=== PATIENT | female | born 1970 | race Caucasian/White ===

== ENCOUNTER 2019-04-28 05:28 | Day surgery (SDC) | payer BC ==
[2019-04-22 17:12] VITALS: BMI 31.7
--- NOTE | 2019-04-28 06:52 | HP ---
History & Physical Update - History History: No Change - Physical Physical: No Change - Assessment Assessment: No Change - Plan Plan: No Change (No change in HP)
[2019-04-28] MEDS ORDERED: PHENAZOPYRIDINE HCL 100 MG TABLET (FP) PO STA (06:53)
[2019-04-28] MEDS ORDERED: BUPIVACAINE HCL/PF 0.5% (5 MG/ML) 30 ML VIAL IJ ONE ×4 (07:27→08:40)
[2019-04-28] MEDS ORDERED: MIDAZOLAM HCL 2 MG/2 ML SINGLE DOSE VIAL ONE ×2 (07:41)
[2019-04-28] MEDS ORDERED: ROCURONIUM BROMIDE 50 MG/5 ML SYRINGE ONE ×2 (08:05→08:32)
[2019-04-28] MEDS ORDERED: PROPOFOL 20 ML ONE (08:05)
[2019-04-28] MEDS ORDERED: LIDOCAINE HCL 2% 100 MG/5 ML DISP.SYRIN ONE (08:06)
[2019-04-28] MEDS ORDERED: ceFAZolin SODIUM 1 GM VIAL IVPB ONE (08:30)
[2019-04-28] MEDS ORDERED: ceFAZolin SODIUM 1 GM VIAL ONE ×2 (08:36)
[2019-04-28] MEDS ORDERED: ONDANSETRON 4 MG/2 ML VIAL IVPUSH PRN (08:40)
[2019-04-28] MEDS ORDERED: PHENAZOPYRIDINE HCL 100 MG TABLET (FP) ONE (08:41)
[2019-04-28] MEDS ORDERED: NEOSTIGMINE METHYLSULFATE 0.5 MG/ML - 10 ML MDV ONE (10:08)
--- NOTE | 2019-04-28 11:01 | OP ---
Operative Note - Note: Operative Date: 04/28/19 Pre-Operative Diagnosis: Leiomyomatous uterus; elective sterilization Operation: Robotic hysterectomy with bilateral salpingectomy Post-Operative Diagnosis: Same as Pre-op Surgeon: Alesha Gannon Roundsman: Salas Piper Anesthesiologist/FUNERAL HOME MANAGER: Roel Lowery Anesthesia: General Specimens Removed: Uterus and bilateral tubes Estimated Blood Loss (mls): 20 Drains, Volume Out (mls): 400 (Clear) Fluid Volume Replaced (mls): 1,000
--- NOTE | 2019-04-28 11:02 | SURG ---
Surgery Land Resource Specialist Note Land Resource Specialist: Salas Piper PA-C Date of Service: 04/28/19 Diagnosis: Leiomyomatous uterus; elective sterilization Procedure: Robotic hysterectomy with bilateral salpingectomy I was present for the entirety of the operative procedure. For further detail, please refer to operative report. Visit type - Case Type Case Type: Scheduled - New patient This patient is new to me today: Yes Date on this admission: 04/28/19
[2019-04-28 11:05] LABS: HEMATOCRIT 32.7 % (32.4-45.2); HEMOGLOBIN 10.8 GM/dL (10.7-15.3); MCHC 32.9 g/dl (32.0-36.0); MEAN CELL VOLUME 91.4 fl (80-96); MEAN PLT VOLUME 10.3 fl (7.5-11.1); PLATELET COUNT 198 K/MM3 (134-434); RBC 3.58 M/mm3 (3.60-5.2); WHITE BLOOD COUNT 8.3 K/mm3 (4.0-10.0)
[2019-04-28] MEDS ORDERED: PATIENT'S OWN MEDICATION (NON-FORMULARY) (Cetirizine Hcl 10 MG) PO SCH (11:15)
[2019-04-28] MEDS ORDERED: IBUPROFEN 800 MG/8 ML IJ IVPB ONE (11:40)
--- NOTE | 2019-04-28 13:26 | OP ---
Operative Note - Note: Operative Date: 04/28/19 Pre-Operative Diagnosis: Leiomyomatous Uterus. Pelvic pain Operation: Laparascopic robotic total hysterectomy. bilateral salpingectomy Findings: uterus leiomyomatous uterus 14 cm Post-Operative Diagnosis: Same as Pre-op Anesthesia: General Estimated Blood Loss (mls): 25 Operative Report Dictated: Yes
--- NOTE | 2019-04-28 13:29 | OP ---
DATE OF OPERATION: 04/28/2019 PREOPERATIVE DIAGNOSES: Leiomyomatous uterus, pelvic pain, menorrhagia. POSTOPERATIVE DIAGNOSES: Leiomyomatous uterus, pelvic pain, menorrhagia, uterus approximately 14 cm in size. Patient is status post tubal ligation. OPERATION: Robotic laparoscopic total hysterectomy and bilateral salpingectomy. PROCEDURE: The patient was taken to the operating room, placed in dorsal lithotomy position, prepped and draped in the usual sterile fashion. A time-out was performed in accordance with hospital regulation. Speculum was placed in the vagina, anterior lip of the cervix grasped with single-tooth tenaculum. Cervix then dilated to accommodate the uterine manipulator. Large uterine manipulator was inserted into endometrial cavity. All instruments were then removed. Barroso catheter was inserted. Attention was then drawn to the umbilicus, where an 8-mm umbilical incision was made. Veress needle was inserted into the cavity. Approximately 3 to 4 L of CO2 was insufflated in the cavity. The Veress needle was then removed and an 8-mm trocar was then inserted. Laparoscope and camera revealed some abdominopelvic omental adhesions and the uterus approximately 14 cm in size, ovaries noted to be normal, and patient status post tubal ligation with both proximal and distal stumps, which were normal. Two trocars were placed on the left on the upper abdomen and also parallel to the umbilical incision 10 cm apart from the umbilicus. Scalpel was then used to make an incision and trocar was then inserted under direct visualization. Upper abdomen 5-mm incision was then made and trocar was then inserted. Two trocars were then placed on the right side parallel to each other and parallel to the umbilical incision 10 cm apart. After the scalpel had been used, trocars were inserted under direct visualization. The da Cecy robot was then side-docked to the patient's bedside. Trocars were then inserted onto the da Cecy robot and laparoscope and camera was attached. Visualization revealed numerous pelvic omental adhesions. Uterus was noted to be a leiomyomatous uterus approximately 14 to 15 cm in size. Ovaries were noted to be normal and proximal portions of tubes on the right and left side were both normal. Both the LigaSure and Endo Diana and tenaculum were placed in the abdomen. Attention was then drawn to the console, where control of the console was then done. The trocar was then used to elevate and clamp the uterus to the right side. Round ligament was identified, was clamped and cut using LigaSure. Uterine artery was identified, clamped and cut. Vesicouterine reflection was then entered and carried downward. Bladder was bluntly dissected out of the operative field. Cardinal ligament was identified and clamped and cut and broad ligament was identified, clamped and cut down to the level of the cervix. Endo Diana were then used to enter the vagina. Uterine manipulator was identified and cutting and cautery of the vagina was then done circumferentially. The same procedure was then repeated on the other side. Uteroovarian ligament was identified and clamped and cut. The round ligament was identified, clamped and cut. Broad ligament and cardinal ligament was identified and clamped and cut as the vesicouterine reflection had been reflected down. The vagina was then cut away from the cervix and ureters were identified and found to have peristalsis. Attention was then drawn below, where a tenaculum was then used to grasp the cervix and the uterus, and the cervix was then removed from the pelvis. A 2-0 V-Loc suture was then introduced and the vaginal cuff was then closed in a continuous fashion using V-Loc suture. The needle was then removed from the abdomen. All instruments were then removed after hemostasis achieved and peristalsis of the ureters identified. The incisions were then closed using 3-0 Vicryl in subcuticular fashion. The wound was washed and dressed. Patient tolerated procedure well. Estimated blood loss 25 mL. The da Cecy robot had been removed and all trocars were undocked and removed from the patient's bedside. April FERGUSON/[id number]
[2019-04-28] MEDS: LACTATED RINGERS SOLUTION 1,000 ML IV SCH ×2 (14:00→22:00)
[2019-04-28] MEDS ORDERED: HYDROmorphone HCL 2 MG TABLET PO PRN (17:00)
[2019-04-28] MEDS: CEFAZOLIN 2 GM/D5W 2 GM/50 ML ML IVPB SCH (17:32)
[2019-04-28] MEDS: TIMOLOL 0.5% OPHTHALMIC SOL 5 ML BOTTLE OU SCH (18:00)
[2019-04-28 22:23] LABS: BLOOD UREA NITROGEN 8.2 mg/dL (7-18); CALCIUM 8.4 mg/dL (8.5-10.1); CREATININE 0.6 mg/dL (0.55-1.3); POTASSIUM 4.8 mmol/L (3.5-5.1)
[2019-04-28] MEDS: IBUPROFEN 800 MG/8 ML IJ IVPB PRN (22:49)
[2019-04-29] MEDS: CEFAZOLIN 2 GM/D5W 2 GM/50 ML ML IVPB SCH (00:57)
[2019-04-29] MEDS: TIMOLOL 0.5% OPHTHALMIC SOL 5 ML BOTTLE OU SCH (06:00)
[2019-04-29] MEDS: LACTATED RINGERS SOLUTION 1,000 ML IV SCH (06:50)
[2019-04-29] MEDS ORDERED: HYDROmorphone HCL 2 MG TABLET PO PRN (06:52)
[2019-04-29] MEDS: IBUPROFEN 800 MG/8 ML IJ IVPB PRN (07:30)
--- NOTE | 2019-04-29 08:08 | PN ---
Progress Note (short form) - Note Progress Note: POD 1, Laparascopic robotic total hysterectomy, bilateral salpingectomy Pt seen and examined. Reports she is feeling well, no issues overnight. Tolerating PO. Has not been oob. Sanabria still in place. Denies cp/sob, n/v/d. Vital Signs Temp 98.2 F 04/29/19 06:30 Pulse 64 04/29/19 06:30 Resp 20 04/29/19 06:30 BP 108/58 L 04/29/19 06:30 Pulse Ox 98 04/28/19 22:00 Intake & Output 04/28/19 04/28/19 04/29/19 11:59 23:59 11:59 Intake Total 041 120 1470 Output Total 575 2600 600 Balance -75 -1950 1950 Intake: IV 986 068 1781 Lactated Ringers Solution 650 1400 1,000 ml @ 125 mls/hr IV ASDIR DONALDO Rx#: [id number] IVPB 350 Oral 800 Output: Urine 550 2600 600 Sanabria 2000 600 Estimated Blood Loss 25 Other: Voiding Method Indwelling Catheter Indwelling Catheter CBC, BMP 04/28/19 10:40 04/28/19 21:30 Gen: awake, alert, nad Resp: unlabored on RA Abdo: soft, +ttp at port sites and lower abdomen. Dressings c/d/i. +bowel sounds. A/P: 48 y/o F w/ h/o Leiomyomatous Uterus/Pelvic pain, now POD 1, s/p Laparascopic robotic total hysterectomy, bilateral salpingectomy. VSS Labs pending -F/U Am labs -Remove sanabria, await TOV -Advance diet -Pain control as ordered: Caldor 800mg q6hrs prn, Oxy 5/10mg q4hrs prn, Acetaminophen 650 q4h -Bowel regimen -OOB as tolerated -DVT prophylaxis with lovenox 40mg qd, b/l scds -Plan for d/c later today pending TOV message sent to Dr Gannon regarding above
[2019-04-29] MEDS ORDERED: ACETAMINOPHEN 325 MG TABLET (FP) PO PRN (08:18)
[2019-04-29] MEDS ORDERED: oxyCODONE HCL 5 MG TABLET PO PRN ×2 (08:18)
--- NOTE | 2019-04-29 08:34 | DS ---
"Physical Exam: SUBJECTIVE: Patient seen and examined. Pt seen and examined. Reports she is feeling well, no issues overnight. Tolerating PO. Has not been oob. Sanabria still in place. Denies cp/sob, n/v/d. OBJECTIVE: Vital Signs Period Temp Pulse Resp BP Sys/[place] Pulse Ox Last 24 Hr 97.5 F-98.3 F 47-77 12-20 103-133/55-78 98-100 PHYSICAL EXAM Gen: awake, alert, nad Resp: unlabored on RA Abdo: soft, +ttp at port sites and lower abdomen. Dressings c/d/i. +bowel sounds. LABS Laboratory Results - last 24 hr 04/28/19 04/28/19 04/28/19 06:09 10:40 17:30 WBC 8.3 RBC 3.58 L Hgb 10.8 Hct 32.7 D MCV 91.4 MCH 30.0 MCHC 32.9 RDW 14.0 Plt Count 198 MPV 10.3 Sodium Cancelled Potassium Cancelled Chloride Cancelled Carbon Dioxide Cancelled Anion Gap Cancelled BUN Cancelled Creatinine Cancelled Est GFR (CKD-EPI)AfAm Cancelled Est GFR (CKD-EPI)NonAf Cancelled Random Glucose Cancelled Calcium Cancelled Blood Type O POSITIVE Antibody Screen Negative 04/28/19 21:30 WBC RBC Hgb Hct MCV MCH MCHC RDW Plt Count MPV Sodium 141 Potassium 4.8 Chloride 110 H Carbon Dioxide 27 Anion Gap 5 L BUN 8.2 Creatinine 0.6 Est GFR (CKD-EPI)AfAm 124.05 Est GFR (CKD-EPI)NonAf 107.03 Random Glucose 121 H Calcium 8.4 L Blood Type Antibody Screen HOSPITAL COURSE: The patient was admitted to the Gynecology Unit after an elective repair of her Leiomyomatous Uterus, Pelvic pain. Pt is now s/p Laparascopic robotic total hysterectomy, bilateral salpingectomy. Narcotic and non-narcotic pain management control was achieved with an oral and IV approach. POD #1, the sanabria catheter was removed and patient passed a trial of void. The patient ambulated the bennett without issue. Tabitha-operative IV ABX were administered. DVT prophylaxis was achieved with SCDs, early ambulation and Lovenox 40qd. Narcotic scripts were checked with [facility] [employer] DRIV[employer] MACHINE OPERATOR HELPER prior to escribe. The discharge instructions and an oral pain management plan were reviewed with the patient. All questions answered. Above plan discussed with Dr. Gannon and agreed. Date of Admission:04/28/19 Date of Discharge: 04/29/19 Minutes to complete discharge: 25 Discharge Summary Reason For Visit: ENDOMETRIAL POLYP Condition: Stable - Instructions Diet, Activity, Other Instructions: Dr. Alesha Gannon Hematologist Oncologist discharge instructions Physical activity Resume your normal everyday activity as tolerated no heavy lifting or exercise until seen by your surgeon. You may walk unlimited mark of and climb stairs. You may resume driving the car when you feel safe and comfortable behind the wheel. No sexual activity as instructed by Dr. Gannon. Wound care If you have a bandage, leave it on, and keep dry for 48-72 hours. After that time discard the outer bandage. If they are tapes on the skin under the out of bandage leave them in place. They will peel off in the next 7 to 10 days. Do Not Peel them off. You may shower the day after surgery. If there are tapes present on the skin, you may shower over them. Diet There are no dietary restrictions. Eat healthy, high-fiber foods. Drink 6 to 8 glasses of liquid each day. This will assist in keeping your bowels are regular. Pain management You may take Tylenol or acetaminophen or Ibuprofen (for example, Motrin, Advil etc.) from my pain prescription medication is ordered should be taken as prescribed for moderate to severe pain. Call Dr. Gannon for any of the following: Severe pain not relieved by medication Fever of 101 or higher Excessive bleeding or drainage on dressing Inability to urinate Call the office at [phone] for an appointment in seven days. [facility] [employer] MACHINE OPERATOR HELPER: This report was requested by: Salas Piper | Reference #: [id number] 03/28/2019 Qsymia (phentramine) 15 mg-92 mg capsule / 30 / FebrAngel carpenetr Disposition: HOME - Home Medications Comprehensive Discharge Medication List: Ambulatory Orders Iron 18 mg PO DAILY 04/22/19 Multivitamin [One-Daily Multi-Vitamin] 1 each PO DAILY 04/22/19 Timolol 0.5% [Timoptic 0.5%] 1 drop OU BID 04/22/19 Acetaminophen W/ Codeine #3 [Tylenol # 3 -] 1 tab PO Q4H PRN #20 tablet MDD 6 Cetirizine HCl [Zyrtec -] 10 mg PO PRN 04/28/19 This patient is new to me today: Yes Date on this admission: 04/29/19 Emergency Visit: No Critical Care patient: No - Discharge Referral Referred to [facility] No"
--- NOTE | 2019-04-29 08:40 | PN ---
Progress Note (short form) - Note Progress Note: Anesthesia/pain Pt seen and examined S:Alert and awake, comfortable O: Vital Signs Temperature 98.2 F 04/29/19 06:30 Pulse Rate 64 04/29/19 06:30 Respiratory Rate 20 04/29/19 06:30 Blood Pressure 108/58 L 04/29/19 06:30 O2 Sat by Pulse Oximetry (%) 98 04/28/19 22:00 CBC, BMP 04/28/19 10:40 04/28/19 21:30 A/P: s/p Robotic JIN?BSO Doing well post op Continue current care Sedrick Reza MD
[2019-04-29] MEDS ORDERED: ENOXAPARIN NA (PORCINE) 40 MG/0.4 ML DISP.SYRIN SQ SCH (10:00)
[2019-04-29] MEDS ORDERED: PATIENT'S OWN MEDICATION (NON-FORMULARY) (Iron [Iron] 18 MG) PO SCH (10:00)
[2019-04-29 10:09] VITALS: TEMP 98
[2019-04-29 10:12] LABS: BASO % 0.7 % (0-2.0); EOS % 0.4 % (0-4.5); HEMATOCRIT 32.3 % (32.4-45.2); HEMOGLOBIN 10.7 GM/dL (10.7-15.3); LYMPH % 25.2 % (8-40); MCH 30.1 pg (25.7-33.7); MEAN CELL VOLUME 91.2 fl (80-96); MONO % 8.2 % (3.8-10.2); NEUT % 65.5 % (42.8-82.8); PLATELET COUNT 194 K/MM3 (134-434); RBC 3.54 M/mm3 (3.60-5.2); RDW 13.8 % (11.6-15.6); WHITE BLOOD COUNT 7.6 K/mm3 (4.0-10.0)
[2019-04-29 10:37] LABS: BLOOD UREA NITROGEN 8.4 mg/dL (7-18); CALCIUM 8.3 mg/dL (8.5-10.1); CREATININE 0.7 mg/dL (0.55-1.3); POTASSIUM 3.5 mmol/L (3.5-5.1)
--- NOTE | 2019-04-29 11:17 | CON.CARD ---
Consult Consult Specialty:: Cardiology Referred by:: Dr. Gannon Reason for Consultation:: Cardiac evaluation - History of Present Illness Chief Complaint: Bradycardia History of Present Illness: Patient is a 48 year old female with underlying history of glaucoma who had laparoscopic robotic total hysterectomy and bilateral salpingectomy. Cardiology consultation was called for evaluation of bradycardia reported in the 50's and as low as 40's. She denies chest pain, shortness of breath or palpitations. She denies paroxysmal nocturnal dyspnea or orthopnea. She denies fever or chills. She denies nausea, vomiting, diarrhea or abdominal pain. She denies headache or lightheadedness. She denies syncope. She had seen a cloud physicist from her [place] office 2 years ago prior to starting a diet pill (QSymia). She also takes Timolol eye drops for glaucoma. - History Source History Provided By: Patient, Medical Record Limitations to Obtaining History: No Limitations - Past Medical History ...LMP: 03/22/19 Additional Medical History: Glaucoma - Past Surgical History Past Surgical History: Yes: Hysterectomy Additional Surgical History: Salpingectomy - Alcohol/Substance Use Hx Alcohol Use: No History of Substance Use: reports: None - Smoking History Smoking history: Never smoked Have you smoked in the past 12 months: No Home Medications - Allergies Allergies/Adverse Reactions: Allergies Allergy/AdvReac Type Severity Reaction Status Date / Time No Known Allergies Allergy Verified 04/22/19 17:14 - Home Medications Home Medications: Ambulatory Orders Iron 18 mg PO DAILY 04/22/19 Multivitamin [One-Daily Multi-Vitamin] 1 each PO DAILY 04/22/19 Timolol 0.5% [Timoptic 0.5%] 1 drop OU BID 04/22/19 Acetaminophen W/ Codeine #3 [Tylenol # 3 -] 1 tab PO Q4H PRN #20 tablet MDD 6 Cetirizine HCl [Zyrtec -] 10 mg PO PRN 04/28/19 Review of Systems - Review of Systems Constitutional: denies: Chills, Fever Cardiovascular: denies: Chest Pain, Palpitations, Shortness of Breath Respiratory: denies: Cough, Hemoptysis, Orthopnea, PND, SOB, SOB on Exertion Gastrointestinal: denies: Abdominal Pain, Constipation, Diarrhea, Melena, Nausea , Rectal Bleeding, Vomiting Musculoskeletal: denies: Back Pain, Joint Pain Neurological: denies: Dizziness, Headache, Seizure, Syncope Vital Signs: Vital Signs Temperature 98.0 F 04/29/19 10:00 Pulse Rate 64 04/29/19 10:00 Respiratory Rate 18 04/29/19 10:00 Blood Pressure 90/46 L 04/29/19 10:00 O2 Sat by Pulse Oximetry (%) 98 04/28/19 22:00 Eyes: Yes: PERRL HENT: Yes: Atraumatic Neck: Yes: Supple Respiratory: Yes: CTA Bilaterally Gastrointestinal: Yes: Normal Bowel Sounds, Soft. No: Tenderness Cardiovascular: Yes: Regular Rate and Rhythm JVD: No PMI: Non-Displaced Heart Sounds: Yes: S1, S2. No: Gallop Edema: No - Other Data Labs, Other Data: CBC, BMP 04/29/19 10:00 04/29/19 10:00 Problem List - Problems (1) Glaucoma Code(s): H40.9 - UNSPECIFIED GLAUCOMA (2) H/O total hysterectomy Code(s): Z90.710 - ACQUIRED ABSENCE OF BOTH CERVIX AND UTERUS (3) History of bilateral salpingectomy Code(s): Z90.79 - ACQUIRED ABSENCE OF OTHER GENITAL ORGAN(S) (4) Bradycardia Code(s): R00.1 - BRADYCARDIA, UNSPECIFIED (5) Hypotension Code(s): I95.9 - HYPOTENSION, UNSPECIFIED Assessment/Plan 1. Bradycardia maybe due to Timolol eye drops 2. Post laparoscopic robotic total hysterectomy and b/l salpingectomy 3. Transient hypotension due to fluid depletion PLAN: 1. ECG 2. Patient currently remains asymptomatic cardiac standpoint. Ambulate and continue IV fluids and encourage PO fluid intake 3. Further cardiac work up including echocardiography and external heart monitoring can be done as outpatient with her cloud physicist that she saw previously. 4. Check TFT 5. Post op care 6. Ophthalmology follow up as outpatient regarding glaucoma. May need to reduce the amount of eye drop if symptomatic bradycardia persists. Further plans are to follow Brown Johnson MD
[2019-04-29 11:54] VITALS: BP 94/59; PULSE 57
--- NOTE | 2019-04-29 13:46 | EKG ---
Test Reason : Blood Pressure : / mmHG Vent. Rate : 056 BPM Atrial Rate : 056 BPM P-R Int : 178 ms QRS Dur : 084 ms QT Int : 436 ms P-R-T Axes : 050 013 021 degrees QTc Int : 420 ms SINUS BRADYCARDIA OTHERWISE NORMAL ECG NO PREVIOUS ECGS AVAILABLE Confirmed by Ino Francisco MD ([id number]) on 04/29/2019 1:45:28 PM Referred By: Alesha Gannon Confirmed By:Ino Francisco MD
--- NOTE | 2019-04-29 16:57 | PATH ---
Surgical Pathology Report Patient Name: JEFF ORNELAS [facility]. Rec. #: [id number] /Age/Gender: 1970 (Age: 48) / F Account: [id number] Location: AMBULATORY SURG Taken: 04/28/2019 Received: 04/28/2019 Reported: 04/29/2019 Physicians: Alesha Gannon M.D. Specimen(s) Received A: UTERUS AND CERVIX B: RIGHT FALLOPIAN TUBE C: LEFT FALLOPIAN TUBE Clinical History Endometrial polyp Final Diagnosis A. UTERUS AND CERVIX, ROBOTIC LAPAROSCOPIC TOTAL HYSTERECTOMY: 175 G UTERUS. LEIOMYOMA(TA), SUBSEROSAL AND INTRAMURAL. PROLIFERATIVE ENDOMETRIUM. UNREMARKABLE MYOMETRIUM. UNREMARKABLE CERVIX. B. FALLOPIAN TUBE, RIGHT, SALPINGECTOMY: FALLOPIAN TUBE WITH PARATUBAL CYST AND HYDROSALPINX. C. FALLOPIAN TUBE, LEFT, SALPINGECTOMY: FALLOPIAN TUBE WITH PARATUBAL CYSTS, HYDROSALPINX, AND ENDOMETRIOSIS. Electronically Signed Sweta Barclay M.D. Gross Description A. Received in formalin labeled "uterus and cervix" is a 175 g uterus without attached adnexa. The uterus measures 7 cm from superior to inferior, 7 cm from left to right, and 4 cm from anterior to posterior. The serosa is pink-lanier and shows multiple bulging subserosal nodules. The endometrial cavity measures 3 cm in length and 3 cm from cornu to cornu. The endometrium is hemorrhagic, measuring up to 0.2 cm in thickness. No endometrial polyps are grossly identified. The myometrium is lanier-pink and trabeculated, measuring up to 3.0 cm in thickness. On sectioning, multiple subserosal and intramural nodules are identified, measuring up to 2.2 cm in greatest dimension. The cut surface of the nodules is lanier, rubbery and displays a whorled architecture. No areas of hemorrhage or necrosis are identified. Community Life Director sections are submitted in 10 cassettes as follows: 1- anterior cervix; 2-posterior cervix; 3-anterior endomyometrium; 4-posterior endomyometrium; 5-6- shaved anterior endometrium; 7-8- shaved posterior endometrium; 9- multiple leiomyoma, including largest nodule, posterior; 10- multiple leiomyoma, anterior. B. Received in formalin labeled "right fallopian tube," are 2 segments of fallopian tube. The outer surface is lanier-arcos. One segment is fimbriated which measures 2 x 1 x 0.7 cm and displays a 0.7 cm paratubal cyst. The remaining segment measures 1.6 x 1 x 0.7 cm. Sectioning reveals a dilated 0.5 cm lumen. The entire specimen is submitted in 2 cassettes as follows: 1-fimbria with paratubal cyst; 2-cross sections of fallopian tube. C. Received in formalin labeled "left fallopian tube," are 2 segments of fallopian tube. The outer surface is lanier-arcos. One segment is fimbriated which measures 2 x 1.5 x 1 cm and displays multiple paratubal cysts measuring up to 0.5 cm. The remaining segment measures 2 x 1 x 0.7 cm. Sectioning reveals a dilated 0.5 cm lumen. The entire specimen is submitted in 2 cassettes as follows: 1-fimbria with paratubal cysts; 2-cross sections of fallopian tube.
== END 2019-04-29 14:05 | disposition home or self-care (01) ==
LOC: JASUSAT 05:28 → EDSTATUS 08:00 → J3W 12:39 → JASUSAT 04-29 14:05
PROVIDERS: ATTEND Obstetrics & Gynecology
PROC: 8E0W4CZ Robotic Assisted Procedure of Trunk Region, Percutaneous Endoscopic Approach (ICD-10-PCS; 2019-04-28)
PROC: 0UT9FZZ Resection of Uterus, Via Natural or Artificial Opening With Percutaneous Endoscopic Assistance (ICD-10-PCS; principal; 2019-04-28 08:00)
PROC: 0UT7FZZ Resection of Bilateral Fallopian Tubes, Via Natural or Artificial Opening With Percutaneous Endoscopic Assistance (ICD-10-PCS; 2019-04-28 08:00)
DX: D25.9 Leiomyoma of uterus, unspecified (principal); N92.0 Excessive and frequent menstruation with regular cycle
CPT/HCPCS: 58552; S2900; 36415; 80048; 84703; 85025; 85027; 86850; 86900; 86901; 88302-TC; 88307-TC; 93005; 93010; 94760